=== PATIENT | female | born 1970 | race Caucasian/White ===

== ENCOUNTER 2017-09-19 13:11 | Emergency (ER) | payer OTHER ==
[~2017-09-19] VITALS: Ht 177.8 cm; Wt 100.2 kg
[2017-09-19 15:33] VITALS: BP 133/64
== END 2017-09-19 15:33 | disposition home or self-care (01) ==
LOC: ED 13:11
DX: L30.9 Dermatitis, unspecified (principal); Z88.5 Allergy status to narcotic agent; J45.909 Unspecified asthma, uncomplicated

== ENCOUNTER 2017-11-08 11:31 | Emergency (ER) | payer OTHER ==
[~2017-11-08] VITALS: Ht 175.3 cm; Wt 94.8 kg
[2017-11-08 11:33] VITALS: Ht 175.3 cm; Wt 94.8 kg
[2017-11-08 13:21] LABS: BASOPHIL % 0.7 % (0-2); PLATELET COUNT 320 x10^3mcL (130-400)
[2017-11-08 13:22] LABS: RED CELL DISTRIBUTION WIDTH 28.1 % (11.5-14.5); rbc morphology (normal/abnorm) ABNORMAL (NORMAL)
[2017-11-08 13:51] LABS: CALCIUM 8.8 mg/dL (8.5-10.1); CARBON DIOXIDE 26.8 mmol/L (21-32); CHLORIDE SERUM 102 mmol/L (98-107); CREATININE SERUM 0.6 mg/dL (0.6-1.0); GFR1 > 60 mL/min; GLUCOSE SERUM 119 mg/dL (74-106); SODIUM SERUM 139 mmol/L (136-145)
[2017-11-08 13:55] LABS: ALBUMIN 3.9 g/dL (3.4-5.0); ALKALINE PHOSPHATASE 72 U/L (46-116); ALT/SGPT 23 U/L (14-59); AST/SGOT 18 U/L (15-37); BILIRUBIN TOTAL 0.8 mg/dL (0.20-1.00); LIPASE 110 IU/L (73-393); TOTAL PROTEIN, SERUM 8.1 g/dL (6.4-8.2)
[2017-11-08 14:47] VITALS: BP 102/59
== END 2017-11-08 14:47 | disposition home or self-care (01) ==
LOC: ED 11:31
PROVIDERS: Emergency Medicine
DX: K52.9 Noninfective gastroenteritis and colitis, unspecified (principal); J45.909 Unspecified asthma, uncomplicated; Z88.5 Allergy status to narcotic agent
CPT/HCPCS: J2405; J7030

== ENCOUNTER 2017-11-30 11:17 | Emergency (ER) | payer OTHER ==
[~2017-11-30] VITALS: Ht 172.7 cm; Wt 95.2 kg
[2017-11-30 11:22] VITALS: Ht 172.7 cm; Wt 95.2 kg
[2017-11-30 13:24] VITALS: BP 114/78
== END 2017-11-30 13:24 | disposition home or self-care (01) ==
LOC: ED 11:17
DX: R42 Dizziness and giddiness (principal); R51 Headache; J45.909 Unspecified asthma, uncomplicated; Z88.5 Allergy status to narcotic agent
CPT/HCPCS: 82962; J1200; J2765

== ENCOUNTER 2018-09-09 10:39 | Emergency (ER) | payer OTHER ==
[~2018-09-09] VITALS: Ht 177.8 cm; Wt 95.7 kg
[2018-09-09 10:46] VITALS: Ht 177.8 cm; Wt 95.7 kg
[2018-09-09 13:23] VITALS: BP 126/80
== END 2018-09-09 13:23 | disposition home or self-care (01) ==
LOC: ED 10:39
DX: M54.5 Low back pain (principal); J45.909 Unspecified asthma, uncomplicated; Z88.5 Allergy status to narcotic agent
CPT/HCPCS: J1885